=== PATIENT | female | born 1940 | race African-American/Black ===

== ENCOUNTER 2017-02-25 23:29 | Inpatient (IN) | payer MEDICARE, MEDICAID ==
[~2017-02-25] VITALS: Ht 157.5 cm; Wt 84.5 kg
[~2017-02-25 23:29] MED LIST: ACET-2635 PO; ALLO100T PO; AMIO200T2 PO; BISA5TAB12 PR; BUDE10.2 IH; BUME1TAB30 PO; CARV12 PO; DIGO125T87 PO; DOCU250C28 PO; ERYT250C68 PO; FE PR; FOLI1 PO; ISOS30TA6 PO; LEVO112T4 PO; LIDO15CR11; MEMA7CAP PO; MIRALAX PO; MOM30 PO; MULT1TAB70 PO; OMEP20 PO; PHENY100 PO; POTA8TAB4 PO; SERT100T12 PO; SPIR25 PO; WARF2 PO; WARF3TAB29 PO
[2017-02-25] MEDS ORDERED: AMIODARONE HCL 50 MG/ML 3 ML VIAL IV ONE (23:45)
[2017-02-25] MEDS ORDERED: SODIUM CHLORIDE 0.9% 500 ML IV ONE (23:45)
[2017-02-26] MEDS ORDERED: SODIUM CHLORIDE 0.9% 50 ML ONE
[2017-02-26 00:10] LABS: BASOPHILS % (AUTO) 0.9 % (0.0-2.0); EOSINOPHILS # (AUTO) 0.01 K/uL (0.00-0.70); EOSINOPHILS % (AUTO) 0.07 % (1.0-6.0); HEMATOCRIT 44.3 % (36-46); HEMOGLOBIN 13.9 g/dL (12.0-16.0); LYMPHOCYTES # (AUTO) 1.9 K/uL (1.0-4.8); LYMPHOCYTES % (AUTO) 17.4 % (22.0-44.0); MEAN CORPUSCULAR HEMOGLOBIN 32.1 pg (26.0-34.0); MEAN CORPUSCULAR HGB CONC 31.4 G/dL (31.0-37.0); MEAN CORPUSCULAR VOLUME 102 fL (80-100); MONOCYTES # (AUTO) 0.7 K/uL (0.1-1.0); MONOCYTES % (AUTO) 6.1 % (2.0-9.0); NEUTROPHILS # (AUTO) 8.3 K/uL (1.8-7.7); NEUTROPHILS % (AUTO) 75.6 % (40.0-70.0); PLATELET COUNT (AUTO) 149 K/uL (150-450); RED BLOOD CELL COUNT(AUTO) 4.33 MIL/uL (4.00-5.20); RED CELL DISTRIBUTION WIDTH 18.1 % (11.5-14.5); WHITE BLOOD COUNT (AUTO) 10.9 K/uL (4.5-11.0)
[2017-02-26] MEDS ORDERED: MEMA5 PO (00:22)
[2017-02-26] MEDS ORDERED: NTP TD (00:22)
[2017-02-26] MEDS ORDERED: LUBI24CA2 PO (00:22)
[2017-02-26] MEDS ORDERED: LACT30L PO (00:22)
[2017-02-26] MEDS ORDERED: MULT-248 PO (00:22)
[2017-02-26] MEDS ORDERED: INSU100V SQ (00:22)
[2017-02-26] MEDS ORDERED: GABA-531 PO (00:22)
[2017-02-26] MEDS ORDERED: SENN-31 PO (00:22)
[2017-02-26] MEDS ORDERED: TYL3LL PO (00:22)
[2017-02-26] MEDS ORDERED: ASA3 PO (00:22)
[2017-02-26 00:28] LABS: PROTHROMBIN TIME 69.7 SEC (9.4-11.6)
[2017-02-26] MEDS ORDERED: SODIUM BICARBONATE [ADULT] 8.4% 50 MEQ/50 ML SYRINGE IVP ONE ×3 (00:30→04:30)
[2017-02-26] MEDS ORDERED: DEXTROSE 50%-WATER 25 GM/50 ML SYRINGE IVP ONE ×3 (00:30→06:30)
[2017-02-26] MEDS ORDERED: CALCIUM GLUCONATE 100 MG/ML 10 ML IVP ONE (00:30)
[2017-02-26] MEDS ORDERED: ONDANSETRON HCL 4 MG/2 ML VIAL IVP ONE ×2 (00:30→12:15)
[2017-02-26] MEDS ORDERED: ALBUTEROL SULFATE 5 MG/ML 20 ML NEB SOLN [BULK] NEB ONE (00:30)
[2017-02-26] MEDS ORDERED: INSULIN REGULAR, HUMAN 100 UNITS/ML IVP ONE (00:30)
[2017-02-26] MEDS ORDERED: SODIUM POLYSTYRENE SULFONATE 15 GM/60 ML SUSPENSION BOTTLE PO ONE (00:30)
[2017-02-26 00:34] LABS: SODIUM SERUM 133 mmol/L (136-145)
[2017-02-26 00:35] LABS: ANION GAP 20 mmol/L (8-16); CARBON DIOXIDE 12 mmol/L (22-29); CHLORIDE 101 mmol/L (98-107)
[2017-02-26 00:36] LABS: CREATININE 2.88 mg/dL (0.60-1.30); GLOMERULAR FILTR. RATE CALC 19 mL/min (>60); UREA NITROGEN, BLOOD 52 mg/dL (7-18)
[2017-02-26 00:37] LABS: ALANINE AMINOTRANSFERASE 239 U/L (12-78); ALBUMIN 3.7 g/dL (3.4-5.0); ASPARTATE AMINOTRANSFERASE 297 U/L (15-37); BILIRUBIN,TOTAL 1.4 mg/dL (0.1-1.0); CALCIUM, TOTAL 9.6 mg/dL (8.8-10.5); CREATINE KINASE, TOTAL 81 U/L (26-192); TOTAL PROTEIN, SERUM 8.9 g/dL (6.4-8.2)
[2017-02-26 00:38] LABS: LACTIC ACID 11.2 mmol/L (0.4-2.0); POTASSIUM 7.5 mmol/L (3.5-5.1)
[2017-02-26 00:39] LABS: INR 6.6 (0.9-1.1)
[2017-02-26 00:40] LABS: B-TYPE NATRIURETIC PEPTIDE > 5000 pg/mL (0-100)
[2017-02-26] MEDS ORDERED: 0.9% SODIUM CHLORIDE 5 ML NEB SOLUTION NEB ONE (00:41)
[2017-02-26] MEDS: OXYGEN THERAPY IH SCH ×2 (00:52→08:01)
[2017-02-26 00:54] LABS: CREATINE KINASE MB 0.5 ng/mL (0-5)
[2017-02-26 01:35] LABS: ADD UA MICROSCOPIC YES; APPEARANCE,URINE CLOUDY (CLEAR); GLUCOSE, URINE (UA) NEGATIVE (NEGATIVE); KETONES,URINE TRACE mg/dL (NEGATIVE); LEUKOCYTE ESTERASE ,URINE SMALL (NEGATIVE); OCCULT BLOOD,URINE LARGE (NEGATIVE); PROTEIN,URINE SEE CONFIRM (NEGATIVE)
[2017-02-26 01:53] LABS: SULFOSALICYLIC ACID,URINE 1+ (Negative)
[2017-02-26 01:54] LABS: AMORPHOUS SEDIMENT,UR Moderate /LPF (None Seen); SQUAMOUS EPITHELIAL CELL,UR Few /LPF (None Seen)
[2017-02-26 02:01] LABS: REFLEX LACTIC ACID? YES YES
[2017-02-26] MEDS ORDERED: LIDOCAINE HCL BUFFERED 1% 20 ML VIAL INJ ONE (03:00)
[2017-02-26 03:43] LABS: CALCIUM, TOTAL 8.8 mg/dL (8.8-10.5); CREATININE 2.95 mg/dL (0.60-1.30)
[2017-02-26 03:45] LABS: POTASSIUM 6.8 mmol/L (3.5-5.1)
[2017-02-26 04:16] LABS: ABG A-A DIFF O2 84.5 mmHg (10-20.0); ABG BASE EXCESS -21.9 mmol/L (-2.0-3.0); ABG OXYHEMOGLOBIN 95.7 % (94.0-100.0); ABG PCO2 21 mmHg (35-45); ABG PH 7.144 (7.35-7.450); TEMPERATURE, FAHRENHEIT, BG 98.6 FAHREN (96.0-98.6)
[2017-02-26 04:41] LABS: RBC MORPHOLOGY COMMENT ABNORMAL RBC MORPH
[2017-02-26] MEDS ORDERED: SODIUM BICARBONATE 150 MEQ in DEXTROSE 5%-WATER 1,000 ML IV ONE (04:45)
[2017-02-26] MEDS: DOPamine HCL 400 MG/D5%-WATER 250 ML IV PRN (05:47)
[2017-02-26 06:18] LABS: GLUCOSE,POINT OF CARE 22 MG/DL (70-110)
[2017-02-26 06:41] LABS: GLUCOSE,POINT OF CARE 77 MG/DL (70-110)
[2017-02-26 07:47] LABS: GLUCOSE,POINT OF CARE 113 MG/DL (70-110)
[2017-02-26 10:09] LABS: ABG A-A DIFF O2 62.7 mmHg (10-20.0); ABG BASE EXCESS -20.9 mmol/L (-2.0-3.0); ABG HCO3 10.6 mmol/L (22.0-26.0); ABG OXYHEMOGLOBIN 96.9 % (94.0-100.0); ABG PCO2 21 mmHg (35-45); TEMPERATURE, FAHRENHEIT, BG 98.6 FAHREN (96.0-98.6)
[2017-02-26 10:10] LABS: ABG PH 7.179 (7.35-7.450)
[2017-02-26 10:28] LABS: PROTHROMBIN TIME 110.7 SEC (9.4-11.6)
[2017-02-26 10:32] LABS: BILIRUBIN,TOTAL 1.4 mg/dL (0.1-1.0); CALCIUM, TOTAL 8.5 mg/dL (8.8-10.5); CREATININE 3.25 mg/dL (0.60-1.30); TOTAL PROTEIN, SERUM 7.1 g/dL (6.4-8.2)
[2017-02-26 10:34] LABS: INR 10.4 (0.9-1.1); POTASSIUM 7.1 mmol/L (3.5-5.1)
[2017-02-26] MEDS ORDERED: SODIUM CHLORIDE 0.9% 250 ML IV ONE (11:00)
[2017-02-26 11:07] LABS: ACETAMINOPHEN < 2 mcg/mL (10-30); SALICYLATE < 2.8 mg/dL (2.8-20.0)
[2017-02-26] MEDS ORDERED: HEPARIN SODIUM,PORCINE 1,000 UNITS/ML VIAL IVP ONE ×4 (11:30→18:22)
[2017-02-26] MEDS ORDERED: AMIODARONE HCL 360 MG in DEXTROSE 5%-WATER 242.8 ML IV ONE (13:15)
[2017-02-26] MEDS ORDERED: PHYTONADIONE 5 MG in SODIUM CHLORIDE 0.9% 50 ML IV ONE (15:30)
[2017-02-26 16:53] LABS: ALBUMIN 3.1 g/dL (3.4-5.0); BILIRUBIN,TOTAL 1.4 mg/dL (0.1-1.0); CREATININE 2.65 mg/dL (0.60-1.30); POTASSIUM 5.4 mmol/L (3.5-5.1); TOTAL PROTEIN, SERUM 7.2 g/dL (6.4-8.2)
[2017-02-26 17:27] LABS: GLUCOSE,POINT OF CARE 145 MG/DL (70-110)
[2017-02-26] MEDS: SODIUM CHLORIDE 0.9% 1,000 ML IV SCH (18:51)
[2017-02-26] MEDS ORDERED: AMIODARONE HCL 540 MG in DEXTROSE 5%-WATER 239.2 ML IV ONE (19:15)
[2017-02-26] MEDS: ACETAMINOPHEN/CODEINE 300-30 MG TABLET PO PRN (22:41)
[2017-02-26] MEDS: ONDANSETRON HCL 4 MG/2 ML VIAL IVP PRN (22:43)
[2017-02-27 00:32] LABS: GLUCOSE,POINT OF CARE 76 MG/DL (70-110)
[2017-02-27 05:42] LABS: GLUCOSE,POINT OF CARE 90 MG/DL (70-110)
[2017-02-27] MEDS: ONDANSETRON HCL 4 MG/2 ML VIAL IVP PRN ×3 (06:26→17:44)
[2017-02-27] MEDS: ACETAMINOPHEN/CODEINE 300-30 MG TABLET PO PRN ×2 (06:27→16:37)
[2017-02-27] MEDS: OXYGEN THERAPY IH SCH (08:00)
[2017-02-27 08:52] LABS: HEMATOCRIT 37.3 % (36-46); HEMOGLOBIN 11.7 g/dL (12.0-16.0); MEAN CORPUSCULAR HEMOGLOBIN 31.5 pg (26.0-34.0); MEAN CORPUSCULAR HGB CONC 31.3 G/dL (31.0-37.0); MEAN CORPUSCULAR VOLUME 101 fL (80-100); PLATELET COUNT (AUTO) 82 K/uL (150-450); RED BLOOD CELL COUNT(AUTO) 3.71 MIL/uL (4.00-5.20); WHITE BLOOD COUNT (AUTO) 19.9 K/uL (4.5-11.0)
[2017-02-27 09:05] LABS: PROTHROMBIN TIME 96.6 SEC (9.4-11.6)
[2017-02-27 09:08] LABS: INR 9.1 (0.9-1.1)
[2017-02-27 09:16] LABS: ALBUMIN 3.3 g/dL (3.4-5.0); BILIRUBIN,TOTAL 1.3 mg/dL (0.1-1.0); CREATININE 3.42 mg/dL (0.60-1.30); THYROID STIMULATING HORMONE 6.15 uIU/mL (0.36-3.74); TOTAL PROTEIN, SERUM 7.2 g/dL (6.4-8.2)
[2017-02-27 09:19] LABS: POTASSIUM 6.4 mmol/L (3.5-5.1)
[2017-02-27] MEDS ORDERED: PHYTONADIONE 10 MG/1 ML AMP SQ ONE (09:30)
[2017-02-27 09:33] LABS: BAND NEUTROPHILS % (MANUAL) 8 % (1-5); LYMPHOCYTES % (MANUAL) 7 % (22-44); TOTAL CELLS COUNTED 100
[2017-02-27] MEDS: BUMETANIDE 1 MG TABLET PO SCH ×2 (09:35→20:29)
[2017-02-27] MEDS: PHENYTOIN SODIUM 100 MG ER CAPSULE PO SCH (09:36)
[2017-02-27] MEDS: MEMANTINE HCL 5 MG TABLET PO SCH ×2 (09:36→20:30)
[2017-02-27] MEDS: PHENYTOIN 50 MG CHEWABLE TABLET PO SCH (09:36)
[2017-02-27] MEDS: SERTRALINE HCL 50 MG TABLET PO SCH (09:38)
[2017-02-27 09:47] LABS: ABG A-A DIFF O2 56.8 mmHg (10-20.0); ABG BASE EXCESS -16.2 mmol/L (-2.0-3.0); ABG HCO3 13.7 mmol/L (22.0-26.0); ABG OXYHEMOGLOBIN 97.5 % (94.0-100.0); ABG PCO2 21 mmHg (35-45); ABG PH 7.307 (7.35-7.450); TEMPERATURE, FAHRENHEIT, BG 97.5 FAHREN (96.0-98.6)
[2017-02-27 09:48] LABS: ALLEN TEST, BLOOD GAS Positive
[2017-02-27] MEDS ORDERED: INSULIN REGULAR, HUMAN 100 UNITS/ML IVP ONE (10:00)
[2017-02-27] MEDS ORDERED: CALCIUM GLUCONATE 100 MG/ML 10 ML IVP ONE ×2 (10:00→10:03)
[2017-02-27] MEDS ORDERED: DEXTROSE 50%-WATER 25 GM/50 ML SYRINGE IVP ONE ×3 (10:00→11:00)
[2017-02-27] MEDS ORDERED: INSULIN REGULAR, HUMAN 100 UNITS/ML ONE (10:09)
[2017-02-27 10:47] LABS: GLUCOSE,POINT OF CARE 45 MG/DL (70-110)
[2017-02-27 11:11] LABS: GLUCOSE,POINT OF CARE 136 MG/DL (70-110)
[2017-02-27 11:57] LABS: GLUCOSE,POINT OF CARE 170 MG/DL (70-110)
[2017-02-27] MEDS: AMIODARONE HCL 750 MG in DEXTROSE 5%-WATER 485 ML IV SCH (14:11)
[2017-02-27] MEDS: SODIUM CHLORIDE 0.9% 1,000 ML IV SCH (14:45)
[2017-02-27 14:50] VITALS: BP 101/50
[2017-02-27 15:09] VITALS: BP 133/57
[2017-02-27 15:15] VITALS: BP 154/90
[2017-02-27 15:40] VITALS: BP 134/55
[2017-02-27] MEDS: LEVOTHYROXINE SODIUM 112 MCG TABLET PO SCH (15:40)
[2017-02-27 15:44] LABS: BASOPHILS # (AUTO) 0.01 K/uL (0.00-0.20); BASOPHILS % (AUTO) 0.1 % (0.0-2.0); EOSINOPHILS % (AUTO) 0.03 % (1.0-6.0); HEMATOCRIT 37.5 % (36-46); HEMOGLOBIN 12.2 g/dL (12.0-16.0); LYMPHOCYTES # (AUTO) 0.5 K/uL (1.0-4.8); LYMPHOCYTES % (AUTO) 3.3 % (22.0-44.0); MEAN CORPUSCULAR HEMOGLOBIN 32.5 pg (26.0-34.0); MEAN CORPUSCULAR HGB CONC 32.6 G/dL (31.0-37.0); MEAN CORPUSCULAR VOLUME 100 fL (80-100); MONOCYTES # (AUTO) 0.3 K/uL (0.1-1.0); MONOCYTES % (AUTO) 2.1 % (2.0-9.0); NEUTROPHILS # (AUTO) 15.1 K/uL (1.8-7.7); PLATELET COUNT (AUTO) 98 K/uL (150-450); RED BLOOD CELL COUNT(AUTO) 3.76 MIL/uL (4.00-5.20); RED CELL DISTRIBUTION WIDTH 17.7 % (11.5-14.5)
[2017-02-27 15:55] LABS: INR 2.9 (0.9-1.1); PROTHROMBIN TIME 31.2 SEC (9.4-11.6)
[2017-02-27 15:59] LABS: CALCIUM, TOTAL 8.9 mg/dL (8.8-10.5); CREATININE 1.95 mg/dL (0.60-1.30); POTASSIUM 3.8 mmol/L (3.5-5.1)
[2017-02-27 16:06] LABS: NEUTROPHILS % (AUTO) 94.5 % (40.0-70.0)
[2017-02-27] MEDS ORDERED: *CLINICAL-CEFEPIME DOSING CLINICAL ONE ×2 (16:15)
[2017-02-27] MEDS ORDERED: PHYTONADIONE 5 MG in SODIUM CHLORIDE 0.9% 50 ML IV ONE (16:15)
[2017-02-27 16:26] LABS: BILIRUBIN,TOTAL 1.7 mg/dL (0.1-1.0)
[2017-02-27 16:27] LABS: ALBUMIN 4.2 g/dL (3.4-5.0); TOTAL PROTEIN, SERUM 8.9 g/dL (6.4-8.2)
[2017-02-27] MEDS ORDERED: CEFEPIME HCL 1 GM in DEXTROSE 5%-WATER 50 ML IV ONE (17:00)
[2017-02-27] MEDS: DILTIAZEM HCL 125 MG in DEXTROSE 5%-WATER 100 ML IV SCH (17:21)
[2017-02-27 17:52] LABS: GLUCOSE,POINT OF CARE 67 MG/DL (70-110)
[2017-02-27 18:00] LABS: ABG A-A DIFF O2 131.4 mmHg (10-20.0); ABG BASE EXCESS -0.2 mmol/L (-2.0-3.0); ABG HCO3 25.2 mmol/L (22.0-26.0); ABG OXYHEMOGLOBIN 95.1 % (94.0-100.0); ABG PCO2 30 mmHg (35-45); ABG PH 7.506 (7.35-7.450); TEMPERATURE, FAHRENHEIT, BG 101.7 FAHREN (96.0-98.6)
[2017-02-27 18:01] LABS: ALLEN TEST, BLOOD GAS Positive
[2017-02-27] MEDS ORDERED: MethylPREDNISolone SOD SUCC 125 MG/2 ML VIAL IVP ONE (18:15)
[2017-02-27 18:26] LABS: GLUCOSE,POINT OF CARE 38 MG/DL (70-110)
[2017-02-27] MEDS ORDERED: DEXTROSE 5%-0.45% SODIUM CHL 1,000 ML IV ONE (18:30)
[2017-02-27] MEDS: ACETAMINOPHEN 325 MG TABLET PO PRN (18:44)
[2017-02-27 19:22] LABS: APPEARANCE,URINE TURBID (CLEAR); GLUCOSE, URINE (UA) NEGATIVE (NEGATIVE); KETONES,URINE TRACE mg/dL (NEGATIVE); LEUKOCYTE ESTERASE ,URINE MODERATE (NEGATIVE); OCCULT BLOOD,URINE LARGE (NEGATIVE); PROTEIN,URINE SEE CONFIRM (NEGATIVE)
[2017-02-27 19:33] LABS: ADD UA MICROSCOPIC YES
[2017-02-27 19:45] LABS: SULFOSALICYLIC ACID,URINE 3+ (Negative)
[2017-02-27 19:48] LABS: HYALINE CASTS, URINE 0-2 /LPF (None Seen)
[2017-02-27 19:49] LABS: RBC,URINE >100 /HPF (0-2)
[2017-02-27 19:51] LABS: SQUAMOUS EPITHELIAL CELL,UR Few /LPF (None Seen)
[2017-02-27 20:27] LABS: GLUCOSE,POINT OF CARE 82 MG/DL (70-110)
[2017-02-27] MEDS: GABAPENTIN 300 MG CAPSULE PO SCH (20:30)
[2017-02-27] MEDS ORDERED: LACTULOSE 20 GM/30 ML SOLUTION UDCUP PO PRN (23:00)
[2017-02-27] MEDS ORDERED: ACETAMINOPHEN/CODEINE 300 MG-30 MG/12.5 ML ELIXIR UDCUP PO PRN (23:00)
[2017-02-27] MEDS ORDERED: NITROGLYCERIN 2% (1 GM=INCH) PACKET TP PRN (23:00)
[2017-02-27] MEDS ORDERED: 0.9% SODIUM CHLORIDE 10 ML SYRINGE IVP PRN (23:00)
[2017-02-28] VITALS (8 sets, daily range): BP systolic 94–132; BP diastolic 54–99
[2017-02-28] MEDS: MORPHINE SULFATE 2 MG/ML SYRINGE IVP PRN (00:51)
[2017-02-28] MEDS: ONDANSETRON HCL 4 MG/2 ML VIAL IVP PRN (00:51)
[2017-02-28] MEDS: ACETAMINOPHEN 325 MG TABLET PO PRN (06:36)
[2017-02-28] MEDS: LEVOTHYROXINE SODIUM 112 MCG TABLET PO SCH (06:38)
[2017-02-28] MEDS: OXYGEN THERAPY IH SCH ×2 (07:12→21:49)
[2017-02-28] MEDS: BUMETANIDE 1 MG TABLET PO SCH ×2 (08:25→21:46)
[2017-02-28 08:34] LABS: CALCIUM, TOTAL 8.4 mg/dL (8.8-10.5); CREATININE 2.73 mg/dL (0.60-1.30); HEMATOCRIT 41.4 % (36-46); HEMOGLOBIN 13.1 g/dL (12.0-16.0); MAGNESIUM 1.6 mg/dL (1.80-2.40); MEAN CORPUSCULAR HEMOGLOBIN 31.8 pg (26.0-34.0); MEAN CORPUSCULAR HGB CONC 31.6 G/dL (31.0-37.0); MEAN CORPUSCULAR VOLUME 101 fL (80-100); PLATELET COUNT (AUTO) 110 K/uL (150-450); POTASSIUM 4.5 mmol/L (3.5-5.1); RED BLOOD CELL COUNT(AUTO) 4.11 MIL/uL (4.00-5.20); RED CELL DISTRIBUTION WIDTH 17.4 % (11.5-14.5)
[2017-02-28] MEDS: PHENYTOIN 50 MG CHEWABLE TABLET PO SCH (08:39)
[2017-02-28] MEDS: MEMANTINE HCL 5 MG TABLET PO SCH ×2 (08:40→21:47)
[2017-02-28] MEDS: SENNA/DOCUSATE SODIUM 187-50 MG TABLET PO SCH (08:42)
[2017-02-28] MEDS: SERTRALINE HCL 50 MG TABLET PO SCH (08:43)
[2017-02-28] MEDS: ALLOPURINOL 100 MG TABLET PO SCH ×2 (08:45→11:45)
[2017-02-28] MEDS: PHENYTOIN SODIUM 100 MG ER CAPSULE PO SCH (08:57)
[2017-02-28 09:41] LABS: ALBUMIN 3.3 g/dL (3.4-5.0); CALCIUM, TOTAL 8.3 mg/dL (8.8-10.5); CREATININE 2.74 mg/dL (0.60-1.30); POTASSIUM 4.5 mmol/L (3.5-5.1); TOTAL PROTEIN, SERUM 7.5 g/dL (6.4-8.2)
[2017-02-28 10:00] LABS: BAND NEUTROPHILS % (MANUAL) 29 % (1-5); LYMPHOCYTES % (MANUAL) 2 % (22-44); TOTAL CELLS COUNTED 100
[2017-02-28 10:01] LABS: RBC MORPHOLOGY COMMENT ABNORMAL R
[2017-02-28 10:04] LABS: CORRECTED WHITE BLOOD COUNT 13.7 K/uL (4.5-11.0); WHITE BLOOD COUNT (AUTO) 13.7 K/uL (4.5-11.0)
[2017-02-28] MEDS: SODIUM CHLORIDE 0.9% 1,000 ML IV SCH (10:45)
[2017-02-28] MEDS: LUBIPROSTONE 24 MCG CAPSULE PO SCH (11:45)
[2017-02-28] MEDS ORDERED: KDUR20 PO (13:24)
[2017-02-28] MEDS ORDERED: SERT50TA12 PO (13:24)
[2017-02-28] MEDS ORDERED: PHEN50 PO (13:24)
[2017-02-28] MEDS ORDERED: SODIUM CHLORIDE 0.9% 2,000 ML IV ONE (14:44)
[2017-02-28] MEDS ORDERED: DEXTROSE 50%-WATER 25 GM/50 ML SYRINGE IVP ONE (16:01)
[2017-02-28] MEDS: AMIODARONE HCL 750 MG in DEXTROSE 5%-WATER 485 ML IV SCH (16:15)
[2017-02-28 16:58] LABS: LACTIC ACID 2.9 mmol/L (0.4-2.0)
[2017-02-28] MEDS: DILTIAZEM HCL 125 MG in DEXTROSE 5%-WATER 100 ML IV SCH (17:00)
[2017-02-28] MEDS ORDERED: HEPARIN SODIUM,PORCINE 1,000 UNITS/ML VIAL IVP ONE ×3 (17:17→19:00)
[2017-02-28] MEDS ORDERED: MANNITOL 25%-12.5 GM/50 ML VIAL IVP ONE (17:17)
[2017-02-28 17:28] LABS: REFLEX LACTIC ACID? YES YES
[2017-02-28] MEDS ORDERED: PNEUMOCOCCAL VACCINE POLYVALENT 0.5 ML VIAL [PPSV23] IM ONE (17:45)
[2017-02-28] MEDS: CEFEPIME HCL 0.5 GM in DEXTROSE 5%-WATER 50 ML IV SCH (18:23)
[2017-02-28] MEDS ORDERED: MANNITOL 25%-12.5 GM/50 ML VIAL IVP PRN (19:00)
[2017-02-28 19:08] LABS: GLUCOSE COMMENT 1 Repeated; GLUCOSE,POINT OF CARE 32 MG/DL (70-110)
[2017-02-28 19:08] LABS: GLUCOSE COMMENT 1 Repeated; GLUCOSE,POINT OF CARE 37 MG/DL (70-110)
[2017-02-28 19:11] LABS: GLUCOSE,POINT OF CARE 81 MG/DL (70-110)
[2017-02-28 19:21] LABS: GLUCOSE,POINT OF CARE 72 MG/DL (70-110)
[2017-02-28] MEDS: GABAPENTIN 300 MG CAPSULE PO SCH (21:47)
[2017-02-28] MEDS: DEXTROSE 50%-WATER 25 GM/50 ML SYRINGE IVP PRN (22:06)
[2017-03-01] VITALS (8 sets, daily range): BP systolic 55–163; BP diastolic 31–84
[2017-03-01] MEDS: MORPHINE SULFATE 2 MG/ML SYRINGE IVP PRN ×2 (04:08→09:50)
[2017-03-01 04:33] LABS: HEPATITIS Bs ANTIGEN SCREEN P Negative (Negative); HEPATITIS C AB SCREEN 0.1 s/co ratio (0.0-0.9)
[2017-03-01 05:25] LABS: CALCIUM, TOTAL 9.1 mg/dL (8.8-10.5); CREATININE 2.82 mg/dL (0.60-1.30); POTASSIUM 4.7 mmol/L (3.5-5.1)
[2017-03-01 05:26] LABS: HEMATOCRIT 44.3 % (36-46); HEMOGLOBIN 13.8 g/dL (12.0-16.0); MEAN CORPUSCULAR HEMOGLOBIN 31.5 pg (26.0-34.0); MEAN CORPUSCULAR HGB CONC 31.1 G/dL (31.0-37.0); MEAN CORPUSCULAR VOLUME 101 fL (80-100); PLATELET COUNT (AUTO) 102 K/uL (150-450); RED BLOOD CELL COUNT(AUTO) 4.37 MIL/uL (4.00-5.20); RED CELL DISTRIBUTION WIDTH 18.1 % (11.5-14.5)
[2017-03-01] MEDS: LEVOTHYROXINE SODIUM 112 MCG TABLET PO SCH (06:30)
[2017-03-01] MEDS: OXYGEN THERAPY IH SCH (08:00)
[2017-03-01 08:12] LABS: GLUCOSE COMMENT 1 Received Meds; GLUCOSE,POINT OF CARE 51 MG/DL (70-110)
[2017-03-01 08:12] LABS: GLUCOSE COMMENT 1 Received Meds; GLUCOSE,POINT OF CARE 69 MG/DL (70-110)
[2017-03-01 08:16] LABS: GLUCOSE,POINT OF CARE 134 MG/DL (70-110)
[2017-03-01 08:16] LABS: GLUCOSE,POINT OF CARE 104 MG/DL (70-110)
[2017-03-01] MEDS ORDERED: SUCCINYLCHOLINE CHLORIDE 20 MG/ML 10 ML VIAL ONE (08:31)
[2017-03-01] MEDS ORDERED: RAPID SEQUENCE KIT [RSI] 1 EACH KIT ONE ×2 (08:31)
[2017-03-01] MEDS ORDERED: PHENYLEPHRINE 200 MG/D5%-WATER 250 ML IV ONE (08:50)
[2017-03-01] MEDS: PHENYTOIN SODIUM 100 MG ER CAPSULE PO SCH (09:00)
[2017-03-01] MEDS: SENNA/DOCUSATE SODIUM 187-50 MG TABLET PO SCH (09:00)
[2017-03-01] MEDS ORDERED: NOREPINEPHRINE 4 MG/D5%-WATER 250 ML IV PRN (09:00)
[2017-03-01] MEDS: BUMETANIDE 1 MG TABLET PO SCH ×2 (09:00→20:46)
[2017-03-01] MEDS ORDERED: PHENYLEPHRINE 200 MG/D5%-WATER 250 ML IV PRN (09:00)
[2017-03-01] MEDS ORDERED: NOREPINEPHRINE 4 MG/D5%-WATER 250 ML IV ONE (09:00)
[2017-03-01] MEDS: MEMANTINE HCL 5 MG TABLET PO SCH ×2 (09:00→20:46)
[2017-03-01] MEDS: PHENYTOIN 50 MG CHEWABLE TABLET PO SCH (09:00)
[2017-03-01] MEDS: ALLOPURINOL 100 MG TABLET PO SCH (09:00)
[2017-03-01] MEDS: LUBIPROSTONE 24 MCG CAPSULE PO SCH (09:00)
[2017-03-01] MEDS ORDERED: SODIUM CHLORIDE 0.9% 500 ML IV ONE (09:14)
[2017-03-01] MEDS ORDERED: PROPOFOL 1000 MG/ISO-OSM 100 ML IV ONE (09:35)
[2017-03-01 09:43] LABS: ABG A-A DIFF O2 468.6 mmHg (10-20.0); ABG BASE EXCESS -16.3 mmol/L (-2.0-3.0); ABG HCO3 13.7 mmol/L (22.0-26.0); ABG OXYHEMOGLOBIN 98.4 % (94.0-100.0); ABG PCO2 24 mmHg (35-45); ABG PH 7.262 (7.35-7.450)
[2017-03-01] MEDS ORDERED: SODIUM BICARBONATE [ADULT] 8.4% 50 MEQ/50 ML SYRINGE IVP ONE ×6 (09:47→23:15)
[2017-03-01 09:56] LABS: HEMATOCRIT 42.6 % (36-46); HEMOGLOBIN 13.2 g/dL (12.0-16.0); MEAN CORPUSCULAR HEMOGLOBIN 31.7 pg (26.0-34.0); MEAN CORPUSCULAR HGB CONC 31.1 G/dL (31.0-37.0); MEAN CORPUSCULAR VOLUME 102 fL (80-100); PLATELET COUNT (AUTO) 87 K/uL (150-450); RED BLOOD CELL COUNT(AUTO) 4.18 MIL/uL (4.00-5.20); RED CELL DISTRIBUTION WIDTH 18.7 % (11.5-14.5)
[2017-03-01 10:07] LABS: ANION GAP 28 mmol/L (8-16); CALCIUM, TOTAL 8.7 mg/dL (8.8-10.5); CARBON DIOXIDE 11 mmol/L (22-29); CHLORIDE 92 mmol/L (98-107); CREATININE 3.15 mg/dL (0.60-1.30); GLOMERULAR FILTR. RATE CALC 17 mL/min (>60); POTASSIUM 5.6 mmol/L (3.5-5.1); SODIUM SERUM 131 mmol/L (136-145); UREA NITROGEN, BLOOD 55 mg/dL (7-18)
[2017-03-01 10:09] LABS: BAND NEUTROPHILS % (MANUAL) 76 % (1-5); CORRECTED WHITE BLOOD COUNT 18.3 K/uL (4.5-11.0); LYMPHOCYTES % (MANUAL) 5 % (22-44); METAMYELOCYTES % 4 % (0-0); MYELOCYTES % 1 % (0-0); TOTAL CELLS COUNTED 100
[2017-03-01 10:10] LABS: WHITE BLOOD COUNT (AUTO) 18.3 K/uL (4.5-11.0)
[2017-03-01 10:11] LABS: RBC MORPHOLOGY COMMENT ABNORMAL R
[2017-03-01 10:23] LABS: B-TYPE NATRIURETIC PEPTIDE > 5000 pg/mL (0-100)
[2017-03-01] MEDS: SERTRALINE HCL 50 MG TABLET PO SCH (10:30)
[2017-03-01 10:31] LABS: ALANINE AMINOTRANSFERASE 1549 U/L (12-78); ALBUMIN 2.7 g/dL (3.4-5.0); ASPARTATE AMINOTRANSFERASE 867 U/L (15-37); BILIRUBIN,TOTAL 3.7 mg/dL (0.1-1.0); CREATINE KINASE MB 7.6 ng/mL (0-5); CREATINE KINASE, TOTAL 388 U/L (26-192); TOTAL PROTEIN, SERUM 6.2 g/dL (6.4-8.2)
[2017-03-01] MEDS ORDERED: MORPHINE SULFATE 2 MG/ML SYRINGE IVP PRN (10:45)
[2017-03-01 10:58] LABS: BAND NEUTROPHILS % (MANUAL) 55 % (1-5); CORRECTED WHITE BLOOD COUNT 16.9 K/uL (4.5-11.0); LYMPHOCYTES % (MANUAL) 4 % (22-44); METAMYELOCYTES % 2 % (0-0); MYELOCYTES % 1 % (0-0); TOTAL CELLS COUNTED 100
[2017-03-01 10:59] LABS: RBC MORPHOLOGY COMMENT ABNORMAL R; WHITE BLOOD COUNT (AUTO) 16.9 K/uL (4.5-11.0)
[2017-03-01 11:02] LABS: LACTIC ACID 15.3 mmol/L (0.4-2.0)
[2017-03-01 11:15] LABS: INR 3.2 (0.9-1.1); PARTIAL THROMBOPLASTIN TIME 38 SEC (25-35); PROTHROMBIN TIME 33.4 SEC (9.4-11.6)
[2017-03-01 11:16] LABS: FIBRINOGEN 304 mg/dL (200-400)
[2017-03-01 11:51] LABS: REFLEX LACTIC ACID? YES YES
[2017-03-01] MEDS ORDERED: VASOPRESSIN 100 UNITS in DEXTROSE 5%-WATER 245 ML IV PRN (11:52)
[2017-03-01] MEDS ORDERED: VANCOMYCIN HCL 1 GM/D5% WATER 200 ML IV PRN (12:00)
[2017-03-01] MEDS ORDERED: SODIUM CHLORIDE 0.9% 250 ML IV ONE (12:04)
[2017-03-01] MEDS ORDERED: NOREPINEPHRINE BITARTRATE 8 MG in DEXTROSE 5%-WATER 242 ML IV PRN (12:15)
[2017-03-01] MEDS: DEXTROSE 50%-WATER 25 GM/50 ML SYRINGE IVP PRN ×2 (12:35→12:36)
[2017-03-01] MEDS ORDERED: VANCOMYCIN HCL 1.5 GM in DEXTROSE 5%-WATER 250 ML IV ONE (13:00)
[2017-03-01 13:06] LABS: LACTIC ACID 20.1 mmol/L (0.4-2.0)
[2017-03-01 13:11] LABS: CALCIUM, TOTAL 8.6 mg/dL (8.8-10.5); CREATININE 3.31 mg/dL (0.60-1.30)
[2017-03-01 13:15] LABS: POTASSIUM 6.7 mmol/L (3.5-5.1)
[2017-03-01] MEDS ORDERED: SODIUM CHLORIDE 0.9% 2,000 ML IV ONE (14:00)
[2017-03-01] MEDS: AMIODARONE HCL 750 MG in DEXTROSE 5%-WATER 485 ML IV SCH (15:16)
[2017-03-01] MEDS: DILTIAZEM HCL 125 MG in DEXTROSE 5%-WATER 100 ML IV SCH (16:22)
[2017-03-01] MEDS: DEXTROSE 10%-WATER 1,000 ML IV SCH (16:30)
[2017-03-01] MEDS ORDERED: ETOMIDATE 2 MG/ML 10 ML VIAL IV ONE (17:15)
[2017-03-01] MEDS ORDERED: SUCCINYLCHOLINE CHLORIDE 20 MG/ML 10 ML VIAL IM ONE (17:15)
[2017-03-01] MEDS ORDERED: POTASSIUM CHLORIDE 10 MEQ in NXSTAGE RFP-402 K0/CA3 5,000 ML IRRIG PRN (17:15)
[2017-03-01] MEDS: MetroNIDAZOLE 500 MG/NACL 100 ML IV SCH (17:16)
[2017-03-01] MEDS ORDERED: ETOMIDATE 2 MG/ML 10 ML VIAL IVP ONE (17:45)
[2017-03-01] MEDS ORDERED: SUCCINYLCHOLINE CHLORIDE 20 MG/ML 10 ML VIAL IVP ONE (17:45)
[2017-03-01 18:23] LABS: CALCIUM, TOTAL 7.5 mg/dL (8.8-10.5); CREATININE 2.83 mg/dL (0.60-1.30); POTASSIUM 4.7 mmol/L (3.5-5.1)
[2017-03-01] MEDS: CEFEPIME HCL 0.5 GM in DEXTROSE 5%-WATER 50 ML IV SCH (18:46)
[2017-03-01 18:56] LABS: ABG A-A DIFF O2 454.2 mmHg (10-20.0); ABG BASE EXCESS -21.3 mmol/L (-2.0-3.0); ABG OXYHEMOGLOBIN 92.3 % (94.0-100.0); ABG PCO2 27 mmHg (35-45); TEMPERATURE, FAHRENHEIT, BG 98.6 FAHREN (96.0-98.6)
[2017-03-01 18:58] LABS: ABG HCO3 9.7 mmol/L (22.0-26.0); ABG PH 7.103 (7.35-7.450)
[2017-03-01] MEDS ORDERED: PHENYLEPHRINE HCL 400 MG in DEXTROSE 5%-WATER 210 ML IV PRN (18:58)
[2017-03-01] MEDS ORDERED: NOREPINEPHRINE BITARTRATE 16 MG in DEXTROSE 5%-WATER 234 ML IV PRN (18:58)
[2017-03-01] MEDS: DOPamine HCL 400 MG/D5%-WATER 250 ML IV PRN (19:37)
[2017-03-01] MEDS: GABAPENTIN 300 MG CAPSULE PO SCH (20:46)
[2017-03-01] MEDS: POTASSIUM CHLORIDE 20 MEQ in NXSTAGE RFP-402 K0/CA3 5,000 ML IRRIG PRN (20:59)
[2017-03-01] MEDS ORDERED: TIGECYCLINE 100 MG in SODIUM CHLORIDE 0.9% 100 ML IV ONE (21:00)
[2017-03-01 23:00] LABS: ABG A-A DIFF O2 474.7 mmHg (10-20.0); ABG OXYHEMOGLOBIN 89.9 % (94.0-100.0); ABG PCO2 25 mmHg (35-45)
[2017-03-01 23:01] LABS: ABG HCO3 7.8 mmol/L (22.0-26.0); ABG PH 7.054 (7.35-7.450)
[2017-03-02] VITALS: BP 110/48
[2017-03-02] MEDS: OXYGEN THERAPY IH SCH (00:19)
[2017-03-02 00:33] VITALS: BP 104/46
[2017-03-02] MEDS: DOPamine HCL 400 MG/D5%-WATER 250 ML IV PRN (00:33)
[2017-03-02] MEDS: DEXTROSE 10%-WATER 1,000 ML IV SCH (01:19)
[2017-03-02] MEDS: MetroNIDAZOLE 500 MG/NACL 100 ML IV SCH (01:19)
[2017-03-02] MEDS: POTASSIUM CHLORIDE 20 MEQ in NXSTAGE RFP-402 K0/CA3 5,000 ML IRRIG PRN (02:07)
[2017-03-02] MEDS ORDERED: HEPARIN SODIUM,PORCINE 1,000 UNITS/ML VIAL IVP PRN ×2 (02:30)
[2017-03-02] MEDS ORDERED: HEPARIN SODIUM,PORCINE 1,000 UNITS/ML VIAL ONE (02:33)
[2017-03-02 02:56] LABS: APPEARANCE,URINE CLOUDY (CLEAR); GLUCOSE, URINE (UA) NEGATIVE (NEGATIVE); KETONES,URINE NEGATIVE (NEGATIVE); LEUKOCYTE ESTERASE ,URINE SMALL (NEGATIVE); OCCULT BLOOD,URINE LARGE (NEGATIVE); PROTEIN,URINE SEE CONFIRM (NEGATIVE)
[2017-03-02] MEDS ORDERED: SODIUM CHLORIDE 0.9% IV SCH (03:00)
[2017-03-02] MEDS ORDERED: TIGECYCLINE IV SCH (03:00)
[2017-03-02 03:21] LABS: RBC,URINE 26-50 /HPF (0-2); SULFOSALICYLIC ACID,URINE 2+ (Negative)
[2017-03-02 03:22] LABS: SQUAMOUS EPITHELIAL CELL,UR Few /LPF (None Seen)
[2017-03-02] MEDS ORDERED: SODIUM BICARBONATE [ADULT] 8.4% 50 MEQ/50 ML SYRINGE IVP ONE (04:12)
[2017-03-02] MEDS ORDERED: ATROPINE SULFATE 0.1 MG/ML 10 ML SYRINGE IVP ONE (04:12)
[2017-03-02] MEDS ORDERED: EPINEPHrine 1:10,000 [1 MG/10 ML] SYRINGE IVP ONE (04:12)
[2017-03-02 18:12] LABS: GLUCOSE,POINT OF CARE 221 MG/DL (70-110)
[2017-03-02 18:12] LABS: GLUCOSE COMMENT 1 Juice/Food/D50 Given; GLUCOSE,POINT OF CARE < 10 MG/DL (70-110)
[2017-03-02 18:12] LABS: GLUCOSE,POINT OF CARE 79 MG/DL (70-110)
[2017-03-02 18:17] LABS: GLUCOSE,POINT OF CARE 190 MG/DL (70-110)
[2017-03-02 18:17] LABS: GLUCOSE,POINT OF CARE 246 MG/DL (70-110)
[2017-03-03 16:17] LABS: GLUCOSE,POINT OF CARE 136 MG/DL (70-110)
[2017-03-03 16:17] LABS: GLUCOSE,POINT OF CARE 127 MG/DL (70-110)
[2017-03-03 16:17] LABS: GLUCOSE,POINT OF CARE 138 MG/DL (70-110)
[2017-03-04 18:32] LABS: ANA,IFA (TITER & PATTERN) Positive
== END 2017-03-02 04:13 | disposition expired | DRG 871 ==
LOC: EMS 23:31 → ICU 02-28 14:10
PROVIDERS: ADMIT Family Medicine; ATTEND Family Medicine
PROC: 30233K1 Transfusion of Nonautologous Frozen Plasma into Peripheral Vein, Percutaneous Approach (ICD-10-PCS; 2017-02-28)
PROC: 5A1945Z Respiratory Ventilation, 24-96 Consecutive Hours (ICD-10-PCS; principal; 2017-03-01)
PROC: 0BH17EZ Insertion of Endotracheal Airway into Trachea, Via Natural or Artificial Opening (ICD-10-PCS; 2017-03-01)
PROC: 5A12012 Performance of Cardiac Output, Single, Manual (ICD-10-PCS; 2017-03-02)
PROC: 5A1D60Z (ICD-10-PCS; 2017-03-02)
DX: A41.9 Sepsis, unspecified organism (principal); N17.0 Acute kidney failure with tubular necrosis; K72.00 Acute and subacute hepatic failure without coma; J96.00 Acute respiratory failure, unspecified whether with hypoxia or hypercapnia; I50.23 Acute on chronic systolic (congestive) heart failure; D68.59 Other primary thrombophilia; I42.0 Dilated cardiomyopathy; I47.2 Ventricular tachycardia; E87.4 Mixed disorder of acid-base balance; N39.0 Urinary tract infection, site not specified; E87.2 Acidosis; I13.0 Hypertensive heart and chronic kidney disease with heart failure and stage 1 through stage 4 chronic kidney disease, or unspecified chronic kidney disease; I47.1 Supraventricular tachycardia; K86.2 Cyst of pancreas; K56.7 Ileus, unspecified; R57.9 Shock, unspecified; B15.9 Hepatitis A without hepatic coma; Z99.11 Dependence on respirator [ventilator] status; I69.354 Hemiplegia and hemiparesis following cerebral infarction affecting left non-dominant side; E87.6 Hypokalemia; E11.21 Type 2 diabetes mellitus with diabetic nephropathy; E11.22 Type 2 diabetes mellitus with diabetic chronic kidney disease; I48.91 Unspecified atrial fibrillation; J44.9 Chronic obstructive pulmonary disease, unspecified; E78.5 Hyperlipidemia, unspecified; G40.909 Epilepsy, unspecified, not intractable, without status epilepticus; F32.9 Major depressive disorder, single episode, unspecified; E87.5 Hyperkalemia; I49.5 Sick sinus syndrome; I08.1 Rheumatic disorders of both mitral and tricuspid valves; B95.5 Unspecified streptococcus as the cause of diseases classified elsewhere; T45.515A Adverse effect of anticoagulants, initial encounter; X58.XXXA Exposure to other specified factors, initial encounter; N18.9 Chronic kidney disease, unspecified; I25.10 Atherosclerotic heart disease of native coronary artery without angina pectoris; I44.7 Left bundle-branch block, unspecified; E11.649 Type 2 diabetes mellitus with hypoglycemia without coma; E03.9 Hypothyroidism, unspecified; F03.90 Unspecified dementia, unspecified severity, without behavioral disturbance, psychotic disturbance, mood disturbance, and anxiety; E78.00 Pure hypercholesterolemia, unspecified; R62.7 Adult failure to thrive; I70.0 Atherosclerosis of aorta; I95.9 Hypotension, unspecified; K21.9 Gastro-esophageal reflux disease without esophagitis; Z79.01 Long term (current) use of anticoagulants; Z88.8 Allergy status to other drugs, medicaments and biological substances; Z88.0 Allergy status to penicillin; Y93.89 Activity, other specified; Z85.3 Personal history of malignant neoplasm of breast; Z88.6 Allergy status to analgesic agent; Z90.10 Acquired absence of unspecified breast and nipple; Z90.710 Acquired absence of both cervix and uterus; Z74.01 Bed confinement status; Z86.718 Personal history of other venous thrombosis and embolism; Z79.4 Long term (current) use of insulin; Z95.810 Presence of automatic (implantable) cardiac defibrillator; Y92.89 Other specified places as the place of occurrence of the external cause; Y99.8 Other external cause status; Z95.0 Presence of cardiac pacemaker; Z86.79 Personal history of other diseases of the circulatory system
CPT/HCPCS: 36430; 36556; 74010; 80074; 82010; 82570; 82805; 82962; 83605; 83735; 84100; 84145; 84156; 84300; 84443; 84540; 85362; 85379; 85384; 86038; 86900; 86901; 86927; 87040; 87070; 87081; 87086; 87106; 87205; 87340; 90935; 92950; 93005; 93925; 93971; 94002; 94640; 96361; 96365; 96366; 96368; 96375; 96376; 99285; G0480; G0481; J0171; J0282; J0330; J0461; J0610; J0692; J1265; J1644; J1815; J2150; J2270; J2370; J2405; J2704; J3243; J3370; J3430; J3480; J3490; J7030; J7040; J7050; J7060; P9017